=== PATIENT | female | born 1995 | race Caucasian/White ===

== ENCOUNTER 2016-09-14 17:53 | Emergency (ER) | payer OTHER ==
--- NOTE | 2016-09-14 20:29 | ED ORDER SUMMARY ---
..... Patient: APOORVA GA OrderSheet [facility] VisitID: [id number] [place] [address] 20y, F Registration Date/Time: 09/14/2016 ORDER SHEET Weight: 54.4 kg (stated) Allergies: Vicodin GENERAL ORDERS: UA-Culture if indicated Urgent (18:21 09/14/2016 DDean R.N. per protocol) (Ack 18:23 TBergley) (18:24 TBergley) Urine Urgent (18:21 09/14/2016 DDean R.N. per protocol) (Ack 18:23 TBergley) (18:24 TBergley) Abdomen 1V Upright Urgent (19:11 09/14/2016 Mary PRICE) (Ack 19:13 TBergley) (19:22 Kolby) MEDICATION ORDERS: IV FLUIDS: ORDER SHEET NOTES: [Electronically signed by Vega Coles R.N. (20:40 09/14/2016)] [Electronically signed by Alexandr Campbell MD (07:39 09/18/2016)] [Electronically locked/signed by Vega Coles R.N. (20:40 09/14/2016)]
--- NOTE | 2016-09-14 20:29 | ED NURSING NOTES ---
Clinical Report - Nurses [facility] [address] [place] [address] 09/14/2016 17:53 Patient: APOORVA GA TRIAGE Triage time 1805. Acuity: LEVEL 4. Chief Complaint: (right flank pain, hurts more when sitting). --18:14 Violeta Darden R.N. 18:05 09/14/16. BP: 122/88. HR: 88. RR: 18. O2 saturation: 100%. Temp: 98.8 F. Pain level now: 01/18. --18:14 Violeta Darden R.N. Weight: 54.4 kg stated. Height/Length: 64 inches Per Patient. BMI: 20.6. --18:13 Violeta Darden R.N. Medications Control Pills. Insulin Glargine Subcutaneous. NovoLOG Subcutaneous. --20:40 Vega Coles R.N. Simvastatin Oral. Synthroid Oral. --20:40 Vega Coles R.N. Allergies Vicodin. --20:40 Vega Coles R.N. History Arrived by private vehicle. Historian: patient. Accompanied by friend. Primary physician (danielle). Onset. (0830a). She has had flank pain. ( denies frequency or urgency. denies known trauma- or fall). No hematuria or fever. PAST MEDICAL HX: Last normal menstrual period- 1 week. SOCIAL HX: Light tobacco smoker (cigarette)- less than 1/2 a pack per day (trying to quit). No alcohol use or drug use. --18:14 Violeta Darden R.N. PROBLEMS: Myofascial Strain. Hemorrhoids. Hypothyroidism. Sinusitis. Hyperlipidemia. Herpetic Gingivostomatitis. Dental Pain. Aphthous Ulcer. Strep Throat. Diabetic Ketoacidosis. AC Joint Separation. Thyroid Disease. Celiac Disease. Dysmenorrhea. Diabetes Mellitus. --18:12 Violeta Darden R.N. ADDITIONAL SURGERIES: Appendectomy. Pylenidal cyst . --18:12 Violeta Darden R.N. Interventions ID band on patient. To treatment room. --18:14 Viloeta Darden R.N. PHYSICAL ASSESSMENT 18:05. Patient gowned. GENERAL / NEURO / PSYCH: Alert. Oriented X 4. Appears in no acute distress. RESPIRATORY: Respirations not labored. CVS: Capillary refill less than 2 seconds. GI / : No pain with urination, frequency of urination or urgency of urination. No vaginal discharge. SKIN: Skin is warm and dry. --18:17 Violeta Darden R.N. NURSING PROGRESS NOTES 18:05. Patient gowned. Head of bed elevated. Reassurance given. Patient identifiers checked. Call light placed in reach. Side rails up. Bed placed in lowest position. Patient ready for evaluation- chart flagged. --18:14 Violeta Darden R.N. 18:20. Patient ID band checked for patient name and birthdate: patient confirmed. Clean catch urine collected with return of yellow-colored clear urine; sample sent to lab for urinalysis and culture. Specimen labeled in the presence of the patient. --18:22 Violeta Darden R.N. 18:20. Care transferred and report given (BIPIN Christiansen). --18:22 Violeta Darden R.N. 19:17 09/14/16. The patient reports no complaints and she is calm and resting quietly. ( with visitor at bedside. Waiting for additional orders/testing). --19:17 Karina Balderas R.N. 20:35. The patient is calm and resting quietly. SKIN: Skin is warm and dry. Skin color within normal limits. --20:39 Vega Coles R.N. DISPOSITION / DISCHARGE Departure time: 20:39. Condition at departure: stable. No learning barriers present. Discharge instructions provided and reviewed with roll over press operator and the patient. Reviewed medication(s) side effects, precautions, dosing and course information. Prescription(s) given to the patient. Patient verbalized understanding. Written instructions provided in Greenlandic. The patient was discharged home and accompanied by roll over press operator. She left the Emergency Department ambulatory and via private vehicle. Youth Services Librarian driving. FALL RISK ASSESSMENT: Fall risk assessment completed. No fall risk identified. --20:39 Vega Coles R.N. 20:37 09/14/16. BP: 115/79. HR: 59. RR: 15. O2 saturation: 100% on room air. Pain level now: 11/18. --20:39 Vega Coles R.N. Locked/Released at 09/14/2016 20:40 by Vega Coles R.N.
--- NOTE | 2016-09-14 20:29 | ED NURSING NOTES ---
Clinical Report - Nurses [facility] [address] [place] [address] 09/14/2016 17:53 Patient: APOORVA GA TRIAGE Triage time 1805. Acuity: LEVEL 4. Chief Complaint: (right flank pain, hurts more when sitting). --18:14 Violeta Darden R.N. 18:05 09/14/16. BP: 122/88. HR: 88. RR: 18. O2 saturation: 100%. Temp: 98.8 F. Pain level now: 01/18. --18:14 Violeta Darden R.N. Weight: 54.4 kg stated. Height/Length: 64 inches Per Patient. BMI: 20.6. --18:13 Violeta Darden R.N. Medications Control Pills. Insulin Glargine Subcutaneous. NovoLOG Subcutaneous. --20:40 Vega Coles R.N. Simvastatin Oral. Synthroid Oral. --20:40 Vega Coles R.N. Allergies Vicodin. --20:40 Vega Coles R.N. History Arrived by private vehicle. Historian: patient. Accompanied by friend. Primary physician (danielle). Onset. (0830a). She has had flank pain. ( denies frequency or urgency. denies known trauma- or fall). No hematuria or fever. PAST MEDICAL HX: Last normal menstrual period- 1 week. SOCIAL HX: Light tobacco smoker (cigarette)- less than 1/2 a pack per day (trying to quit). No alcohol use or drug use. --18:14 Violeta Darden R.N. PROBLEMS: Myofascial Strain. Hemorrhoids. Hypothyroidism. Sinusitis. Hyperlipidemia. Herpetic Gingivostomatitis. Dental Pain. Aphthous Ulcer. Strep Throat. Diabetic Ketoacidosis. AC Joint Separation. Thyroid Disease. Celiac Disease. Dysmenorrhea. Diabetes Mellitus. --18:12 Violeta Darden R.N. ADDITIONAL SURGERIES: Appendectomy. Pylenidal cyst . --18:12 Violeta Darden R.N. Interventions ID band on patient. To treatment room. --18:14 Violeta Darden R.N. PHYSICAL ASSESSMENT 18:05. Patient gowned. GENERAL / NEURO / PSYCH: Alert. Oriented X 4. Appears in no acute distress. RESPIRATORY: Respirations not labored. CVS: Capillary refill less than 2 seconds. GI / : No pain with urination, frequency of urination or urgency of urination. No vaginal discharge. SKIN: Skin is warm and dry. --18:17 Violeta Darden R.N. NURSING PROGRESS NOTES 18:05. Patient gowned. Head of bed elevated. Reassurance given. Patient identifiers checked. Call light placed in reach. Side rails up. Bed placed in lowest position. Patient ready for evaluation- chart flagged. --18:14 Violeta Darden R.N. 18:20. Patient ID band checked for patient name and birthdate: patient confirmed. Clean catch urine collected with return of yellow-colored clear urine; sample sent to lab for urinalysis and culture. Specimen labeled in the presence of the patient. --18:22 Violeta Darden R.N. 18:20. Care transferred and report given (BIPIN Christiansen). --18:22 Violeta Draden R.N. 19:17 09/14/16. The patient reports no complaints and she is calm and resting quietly. ( with visitor at bedside. Waiting for additional orders/testing). --19:17 Karina Balderas R.N. 20:35. The patient is calm and resting quietly. SKIN: Skin is warm and dry. Skin color within normal limits. --20:39 Vega Coles R.N. DISPOSITION / DISCHARGE Departure time: 20:39. Condition at departure: stable. No learning barriers present. Discharge instructions provided and reviewed with marine cargo specialist and the patient. Reviewed medication(s) side effects, precautions, dosing and course information. Prescription(s) given to the patient. Patient verbalized understanding. Written instructions provided in Vietnamese. The patient was discharged home and accompanied by marine cargo specialist. She left the Emergency Department ambulatory and via private vehicle. Concrete Finisher driving. FALL RISK ASSESSMENT: Fall risk assessment completed. No fall risk identified. --20:39 Vega Coles R.N. 20:37 09/14/16. BP: 115/79. HR: 59. RR: 15. O2 saturation: 100% on room air. Pain level now: 11/18. --20:39 Vega Coles R.N. Locked/Released at 09/14/2016 20:40 by Vega Coles R.N.
--- NOTE | 2016-09-14 20:29 | ED ORDER SUMMARY ---
..... Patient: APOORVA GA OrderSheet [facility] VisitID: [id number] [place] [address] 20y, F Registration Date/Time: 09/14/2016 ORDER SHEET Weight: 54.4 kg (stated) Allergies: Vicodin GENERAL ORDERS: UA-Culture if indicated Urgent (18:21 09/14/2016 DDean R.N. per protocol) (Ack 18:23 TBergley) (18:24 TBergley) Urine Urgent (18:21 09/14/2016 DDean R.N. per protocol) (Ack 18:23 TBergley) (18:24 TBergley) Abdomen 1V Upright Urgent (19:11 09/14/2016 Mary PRICE) (Ack 19:13 TBergley) (19:22 Kolby) MEDICATION ORDERS: IV FLUIDS: ORDER SHEET NOTES: [Electronically signed by Vega Coles R.N. (20:40 09/14/2016)] [Electronically signed by Alexandr Campbell MD (07:39 09/18/2016)] [Electronically locked/signed by Vega Coles R.N. (20:40 09/14/2016)]
--- NOTE | 2016-09-14 20:29 | ED CLINICAL REPORT ---
Clinical Report - Physicians/Mid Levels [facility] [address] [place] [address] 09/14/2016 17:53 Patient: APOORVA GA Time Seen: 18:30. Arrived- By private vehicle. Historian- patient. HISTORY OF PRESENT ILLNESS Chief Complaint: FLANK PAIN. At its maximum, severity described as moderate. When seen in the E.D., severity described as mild. Modifying factors- worsened by movement. ((right flank pain, hurts more when sitting).). This started today Onset. (829a). She has had flank pain. ( denies frequency or urgency. denies known trauma- or fall). and is still present. It is described as "pain", sharp and stabbing and it is described as located in the right flank. No nausea, loss of appetite, vomiting or diarrhea. Similar symptoms previously: None. Recent medical care: Not recently seen/assessed. REVIEW OF SYSTEMS No constipation, black stools, hematemesis, difficulty with urination or pain with urination. No urinary frequency, fever, sore throat, chest pain or difficulty breathing. No cough, joint pain, skin rash or chills. Denies current . The patient has had back pain. All systems otherwise negative, except as recorded above. PAST HISTORY Myofascial Strain. Hemorrhoids. Hypothyroidism. Sinusitis. Hyperlipidemia. Herpetic Gingivostomatitis. Dental Pain. Aphthous Ulcer. Strep Throat. Diabetic Ketoacidosis. AC Joint Separation. Thyroid Disease. Celiac Disease. Dysmenorrhea. Diabetes Mellitus. ADDITIONAL SURGERIES: Appendectomy. Pylenidal cyst . Medications: Simvastatin Oral. Synthroid Oral. Control Pills. Insulin Glargine Subcutaneous. NovoLOG Subcutaneous. Allergies: Vicodin. SOCIAL HISTORY Light tobacco smoker (cigarette)- less than 1/2 a pack per day. No alcohol use or drug use. ADDITIONAL NOTES The nursing notes have been reviewed. PHYSICAL EXAM Vital Signs: 09/14/2016 18:05 BP: 122/88. HR: 88. RR: 18. O2 saturation: 100%. Temp: 98.8 F. Pain level now: 01/18. Appearance: Alert. Anxious. Patient in mild distress. Eyes: Pupils equal, round and reactive to light. Eyes normal inspection. ENT: Ears normal. Nose normal. Pharynx normal. Neck: Normal inspection. Neck supple. CVS: Normal heart rate and rhythm. Heart sounds normal. Pulses normal. Respiratory: No respiratory distress. Breath sounds normal. Chest nontender. Abdomen: Soft and nontender. Bowel sounds normal. Back: (Soft tissue tenderness right paralumbar soft tissue.). Skin: Skin warm. Normal skin color. No rash. Extremities: Extremities exhibit normal ROM. No lower extremity edema. Neuro: Oriented X 3. No motor deficit. No sensory deficit. Reflexes normal. LABS, X-RAYS, AND EKG KUB: No acute disease. (Moderate stool . No acute findings). Views: erect AP. Technique: good. The X-rays were independently viewed by me and interpreted contemporaneously by me. Laboratory Tests: UA-Culture if indicated: (JACEY: 09/14/2016 18:10) ( [facility] 09/14/2016 18:36) Final results Test Result Flag Units (Reference) URINE COLOR YELLOW URINE APPEARANCE CLEAR URINE GLUCOSE 3+ (NEGATIVE) URINE BILIRUBIN NEGATIVE (NEGATIVE) URINE KETONE NEGATIVE (NEGATIVE) URINE SPECIFIC GRAVITY 1.010 (1.010-1.030) URINE PH 5.5 (5.0-8.0) URINE PROTEIN NEGATIVE (NEGATIVE) URINE UROBILINOGEN 0.2 EU/dL (0.2-1.0) URINE NITRITE NEGATIVE (NEGATIVE) URINE BLOOD NEGATIVE (NEGATIVE) URINE LEUK ESTERASE NEGATIVE (NEGATIVE) URINE RBC 0-1 rbc/hpf (0-1) URINE WBC 1-3 wbc/hpf (0-1) URINE EPITHELIAL CELLS 1-3 EPI/hpf (0-5) URINE BACTERIA NONE SEEN (NONE SEEN) URINE COMMENT CULT NOT INDICATED URINE CULTURES ARE SET-UP BASED ON THE FOLLOWING CRITERIA:POSITIVE NITRITEPOSITIVE LEUKOCYTE ESTERASEGREATER THAN 10 WHITE BLOOD CELLSMODERATE (2+) OR GREATER BACTERIA Urine: (JACEY: 09/14/2016 18:10) ( Cog[facility]cvd 09/14/2016 18:29) Final results Test Result Flag Units (Reference) URINE NEGATIVE . PROGRESS AND PROCEDURES Patient/family counseled. Disposition: Discharged. Condition: stable. CLINICAL IMPRESSION Right paralumbar soft tissue tenderness. Moderate stool on abdominal x-ray. INSTRUCTIONS No strenuous activity. Drink plenty of fluids. (Drink one bottle of magnesium citrate to clean bowels.). Warnings: Further evaluation is necessary. GENERAL WARNINGS: Return or contact your physician immediately if your condition worsens or changes unexpectedly, if not improving as expected, or if other problems arise. Prescription Medications: Ibuprofen 600 mg tablets: take 1 tablet orally every 6 hours as needed for pain. Dispense fifteen (15). No refill. Flexeril 5 mg: take 1 orally every 8 hours as needed for muscle spasm or pain. Dispense fifteen (15). No refills. Substitution is permissible. Follow-up: Follow up with your doctor in three days if not better. Understanding of the discharge instructions verbalized by patient. Discharge instructions reviewed with and understanding was verbalized by automation mechanic. (Electronically signed by Alexandr Campbell MD 09/18/2016 7:39)
--- NOTE | 2016-09-14 20:29 | ED CLINICAL REPORT ---
Clinical Report - Physicians/Mid Levels [facility] [address] [place] [address] 09/14/2016 17:53 Patient: APOORVA GA Time Seen: 18:30. Arrived- By private vehicle. Historian- patient. HISTORY OF PRESENT ILLNESS Chief Complaint: FLANK PAIN. At its maximum, severity described as moderate. When seen in the E.D., severity described as mild. Modifying factors- worsened by movement. ((right flank pain, hurts more when sitting).). This started today Onset. (829a). She has had flank pain. ( denies frequency or urgency. denies known trauma- or fall). and is still present. It is described as "pain", sharp and stabbing and it is described as located in the right flank. No nausea, loss of appetite, vomiting or diarrhea. Similar symptoms previously: None. Recent medical care: Not recently seen/assessed. REVIEW OF SYSTEMS No constipation, black stools, hematemesis, difficulty with urination or pain with urination. No urinary frequency, fever, sore throat, chest pain or difficulty breathing. No cough, joint pain, skin rash or chills. Denies current . The patient has had back pain. All systems otherwise negative, except as recorded above. PAST HISTORY Myofascial Strain. Hemorrhoids. Hypothyroidism. Sinusitis. Hyperlipidemia. Herpetic Gingivostomatitis. Dental Pain. Aphthous Ulcer. Strep Throat. Diabetic Ketoacidosis. AC Joint Separation. Thyroid Disease. Celiac Disease. Dysmenorrhea. Diabetes Mellitus. ADDITIONAL SURGERIES: Appendectomy. Pylenidal cyst . Medications: Simvastatin Oral. Synthroid Oral. Control Pills. Insulin Glargine Subcutaneous. NovoLOG Subcutaneous. Allergies: Vicodin. SOCIAL HISTORY Light tobacco smoker (cigarette)- less than 1/2 a pack per day. No alcohol use or drug use. ADDITIONAL NOTES The nursing notes have been reviewed. PHYSICAL EXAM Vital Signs: 09/14/2016 18:05 BP: 122/88. HR: 88. RR: 18. O2 saturation: 100%. Temp: 98.8 F. Pain level now: 01/18. Appearance: Alert. Anxious. Patient in mild distress. Eyes: Pupils equal, round and reactive to light. Eyes normal inspection. ENT: Ears normal. Nose normal. Pharynx normal. Neck: Normal inspection. Neck supple. CVS: Normal heart rate and rhythm. Heart sounds normal. Pulses normal. Respiratory: No respiratory distress. Breath sounds normal. Chest nontender. Abdomen: Soft and nontender. Bowel sounds normal. Back: (Soft tissue tenderness right paralumbar soft tissue.). Skin: Skin warm. Normal skin color. No rash. Extremities: Extremities exhibit normal ROM. No lower extremity edema. Neuro: Oriented X 3. No motor deficit. No sensory deficit. Reflexes normal. LABS, X-RAYS, AND EKG KUB: No acute disease. (Moderate stool . No acute findings). Views: erect AP. Technique: good. The X-rays were independently viewed by me and interpreted contemporaneously by me. Laboratory Tests: UA-Culture if indicated: (JACEY: 09/14/2016 18:10) ( [facility] 09/14/2016 18:36) Final results Test Result Flag Units (Reference) URINE COLOR YELLOW URINE APPEARANCE CLEAR URINE GLUCOSE 3+ (NEGATIVE) URINE BILIRUBIN NEGATIVE (NEGATIVE) URINE KETONE NEGATIVE (NEGATIVE) URINE SPECIFIC GRAVITY 1.010 (1.010-1.030) URINE PH 5.5 (5.0-8.0) URINE PROTEIN NEGATIVE (NEGATIVE) URINE UROBILINOGEN 0.2 EU/dL (0.2-1.0) URINE NITRITE NEGATIVE (NEGATIVE) URINE BLOOD NEGATIVE (NEGATIVE) URINE LEUK ESTERASE NEGATIVE (NEGATIVE) URINE RBC 0-1 rbc/hpf (0-1) URINE WBC 1-3 wbc/hpf (0-1) URINE EPITHELIAL CELLS 1-3 EPI/hpf (0-5) URINE BACTERIA NONE SEEN (NONE SEEN) URINE COMMENT CULT NOT INDICATED URINE CULTURES ARE SET-UP BASED ON THE FOLLOWING CRITERIA:POSITIVE NITRITEPOSITIVE LEUKOCYTE ESTERASEGREATER THAN 10 WHITE BLOOD CELLSMODERATE (2+) OR GREATER BACTERIA Urine: (JACEY: 09/14/2016 18:10) ( [facility] 09/14/2016 18:29) Final results Test Result Flag Units (Reference) URINE NEGATIVE . PROGRESS AND PROCEDURES Patient/family counseled. Disposition: Discharged. Condition: stable. CLINICAL IMPRESSION Right paralumbar soft tissue tenderness. Moderate stool on abdominal x-ray. INSTRUCTIONS No strenuous activity. Drink plenty of fluids. (Drink one bottle of magnesium citrate to clean bowels.). Warnings: Further evaluation is necessary. GENERAL WARNINGS: Return or contact your physician immediately if your condition worsens or changes unexpectedly, if not improving as expected, or if other problems arise. Prescription Medications: Ibuprofen 600 mg tablets: take 1 tablet orally every 6 hours as needed for pain. Dispense fifteen (15). No refill. Flexeril 5 mg: take 1 orally every 8 hours as needed for muscle spasm or pain. Dispense fifteen (15). No refills. Substitution is permissible. Follow-up: Follow up with your doctor in three days if not better. Understanding of the discharge instructions verbalized by patient. Discharge instructions reviewed with and understanding was verbalized by quarantine inspector. (Electronically signed by Alexandr Campbell MD 09/18/2016 7:39)
--- NOTE | 2016-09-14 21:46 | DIAGNOSTIC IMAGING REPORT ---
PROCEDURE: XR ABDOMEN 1 VIEW UPRIGHT INDICATION: ABDOMINAL PAIN TECHNIQUE: AP upright view. COMPARISON: KUB 10/31/2004 FINDINGS: Moderate stool. No abdominal mass, free air or suspicious calcification. Bones are normal. IMPRESSION: 1. Moderate stool
--- NOTE | 2016-09-18 07:39 | ED MAR SUMMARY ---
..... Medication Administration Record [facility] [address] [place] [id number] Patient: APOORVA GA Melvin Visit ID: [id number] 20y, F Weight: 54.4 kg Height/Length: 64 in BMI: 20.6 ALLERGIES: Vicodin
--- NOTE | 2016-09-18 07:39 | ED DISCHARGE INSTRUCTIONS ---
Patient: APOORVA GA General Instructions [facility] VisitID: [id number] [place] [address] 20y, F Registration Date/Time: 09/14/2016 Right paralumbar soft tissue tenderness. Moderate stool on abdominal x-ray. INSTRUCTIONS No strenuous activity. Drink plenty of fluids. (Drink one bottle of magnesium citrate to clean bowels.). Warnings: Further evaluation is necessary. GENERAL WARNINGS: Return or contact your physician immediately if your condition worsens or changes unexpectedly, if not improving as expected, or if other problems arise. Prescription Medications: Ibuprofen 600 mg tablets: take 1 tablet orally every 6 hours as needed for pain. Dispense fifteen (15). No refill. Flexeril 5 mg: take 1 orally every 8 hours as needed for muscle spasm or pain. Dispense fifteen (15). No refills. Substitution is permissible. Follow-up: Follow up with your doctor in three days if not better. Understanding of the discharge instructions verbalized by patient. Discharge instructions reviewed with and understanding was verbalized by code number stamper. ADDITIONAL INFORMATION Ibuprofen Oral tablet What is this medicine? IBUPROFEN (eye BYOO proe fen) is a non-steroidal anti-inflammatory drug (NSAID). It is used for dental pain, fever, headaches or migraines, osteoarthritis, rheumatoid arthritis, or painful monthly periods. It can also relieve minor aches and pains caused by a cold, flu, or sore throat. How should I use this medicine? Take this medicine by mouth with a glass of water. Follow the directions on the prescription label. Take this medicine with food if your stomach gets upset. Try to not lie down for at least 10 minutes after you take the medicine. Take your medicine at regular intervals. Do not take your medicine more often than directed. A special MedGuide will be given to you by the pharmacist with each prescription and refill. Be sure to read this information carefully each time. Talk to your physical medicine specialist regarding the use of this medicine in children. Special care may be needed. What side effects may I notice from receiving this medicine? Side effects that you should report to your doctor or health care giver as soon as possible: allergic reactions like skin rash, itching or hives, swelling of the face, lips, or tongue black or bloody stools, blood in the urine or in vomit breathing problems changes in vision chest pain general ill feeling or flu-like symptoms nausea or vomiting redness, blistering, peeling or loosening of the skin, including inside the mouth slurred speech or weakness on one side of the body stomach pain unexplained weight gain or swelling unusually weak or tired yellowing of eyes or skin Side effects that usually do not require medical attention (report to your doctor or health care giver if they continue or are bothersome): constipation or diarrhea dizziness gas or heartburn stomach upset What may interact with this medicine? Do not take this medicine with any of the following medications: cidofovir ketorolac methotrexate pemetrexed This medicine may also interact with the following medications: alcohol aspirin diuretics lithium other drugs for inflammation like prednisone warfarin What if I miss a dose? If you miss a dose, take it as soon as you can. If it is almost time for your next dose, take only that dose. Do not take double or extra doses. Where should I keep my medicine? Keep out of the reach of children. Store at room temperature between 15 and 30 degrees C (59 and 86 degrees F). Keep container tightly closed. Throw away any unused medicine after the expiration date. What should I tell my health care provider before I take this medicine? They need to know if you have any of these conditions: asthma cigarette smoker drink more than 3 alcohol containing drinks a day heart disease or circulation problems such as heart failure or leg edema (fluid retention) high blood pressure kidney disease liver disease stomach bleeding or ulcers an unusual or allergic reaction to ibuprofen, aspirin, other NSAIDS, other medicines, foods, dyes, or preservatives or trying to get breast-feeding What should I watch for while using this medicine? Tell your doctor or healthcare professional if your symptoms do not start to get better or if they get worse. This medicine does not prevent heart attack or stroke. In fact, this medicine may increase the chance of a heart attack or stroke. The chance may increase with longer use of this medicine and in people who have heart disease. If you take aspirin to prevent heart attack or stroke, talk with your doctor or health care giver. Do not take other medicines that contain aspirin, ibuprofen, or naproxen with this medicine. Side effects such as stomach upset, nausea, or ulcers may be more likely to occur. Many medicines available without a prescription should not be taken with this medicine. This medicine can cause ulcers and bleeding in the stomach and intestines at any time during treatment. Ulcers and bleeding can happen without warning symptoms and can cause . To reduce your risk, do not smoke cigarettes or drink alcohol while you are taking this medicine. You may get drowsy or dizzy. Do not drive, use machinery, or do anything that needs mental alertness until you know how this medicine affects you. Do not stand or sit up quickly, especially if you are an older patient. This reduces the risk of dizzy or fainting spells. This medicine can cause you to bleed more easily. Try to avoid damage to your teeth and gums when you brush or floss your teeth. Cyclobenzaprine Hydrochloride Oral tablet What is this medicine? CYCLOBENZAPRINE (chinacy reji KIRT blair lawson) is a muscle relaxer. It is used to treat muscle pain, spasms, and stiffness. How should I use this medicine? Take this medicine by mouth with a glass of water. Follow the directions on the prescription label. If this medicine upsets your stomach, take it with food or milk. Take your medicine at regular intervals. Do not take it more often than directed. Talk to your physical medicine specialist regarding the use of this medicine in children. Special care may be needed. What side effects may I notice from receiving this medicine? Side effects that you should report to your doctor or health care giver as soon as possible: allergic reactions like skin rash, itching or hives, swelling of the face, lips, or tongue chest pain fast heartbeat hallucinations seizures vomiting Side effects that usually do not require medical attention (report to your doctor or health care giver if they continue or are bothersome): headache What may interact with this medicine? Do not take this medicine with any of the following medications: cisapride droperidol flecainide grepafloxacin halofantrine levomethadyl MAOIs like Carbex, Eldepryl, Marplan, Nardil, and Parnate nilotinib pimozide probucol sertindole This medicine may also interact with the following medications: abarelix alcohol contrast dyes dolasetron guanethidine medicines for cancer medicines for depression, anxiety, or psychotic disturbances medicines to treat an irregular heartbeat medicines used for sleep or numbness during surgery or procedure methadone octreotide ondansetron palonosetron phenothiazines like chlorpromazine, mesoridazine, prochlorperazine, thioridazine some medicines for infection like alfuzosin, chloroquine, clarithromycin, levofloxacin, mefloquine, pentamidine, troleandomycin tramadol vardenafil What if I miss a dose? If you miss a dose, take it as soon as you can. If it is almost time for your next dose, take only that dose. Do not take double or extra doses. Where should I keep my medicine? Keep out of the reach of children. Store at room temperature between 15 and 30 degrees C (59 and 86 degrees F). Keep container tightly closed. Throw away any unused medicine after the expiration date. What should I tell my health care provider before I take this medicine? They need to know if you have any of these conditions: heart disease, irregular heartbeat, or previous heart attack liver disease thyroid problem an unusual or allergic reaction to cyclobenzaprine, tricyclic antidepressants, lactose, other medicines, foods, dyes, or preservatives or trying to get breast-feeding What should I watch for while using this medicine? Check with your doctor or health care giver if your condition does not improve within 1 to 3 weeks. You may get drowsy or dizzy when you first start taking the medicine or change doses. Do not drive, use machinery, or do anything that may be dangerous until you know how the medicine affects you. Stand or sit up slowly. Your mouth may get dry. Drinking water, chewing sugarless gum, or sucking on hard candy may help. You have been given the following additional information: Ibuprofen Oral tablet Cyclobenzaprine Hydrochloride Oral tablet No strenuous activity. (Electronically signed by Alexandr Campbell MD 09/18/2016 7:39)
--- NOTE | 2016-09-18 07:39 | ED MED RECONCILIATION SUMMARY ---
Patient: APOORVA GA Medication Reconciliation Report [facility] VisitID: [id number] [address] [place] [address] 20y, F Registration Date/Time: 09/14/2016 Weight: 54.4 kg Height/Length: 64 in. BMI: 20.6 ALLERGIES: Vicodin The patient's Home Medications are listed below: THE FOLLOWING MEDICATIONS NEED TO BE RECONCILED: Control Pills Insulin Glargine Subcutaneous NovoLOG Subcutaneous Simvastatin Oral Synthroid Oral The source(s) of the original Home Medication information: Not obtained. The following Medications were given to the patient in the Emergency Department: None. The following Medications were prescribed to the patient: Ibuprofen 600 mg tablets: take 1 tablet orally every 6 hours as needed for pain. Dispense fifteen (15). No refill. -- Alexandr Campbell MD Flexeril 5 mg: take 1 orally every 8 hours as needed for muscle spasm or pain. Dispense fifteen (15). No refills. Substitution is permissible. -- Alexandr Campbell MD
--- NOTE | 2016-09-18 07:39 | ED DISCHARGE INSTRUCTIONS ---
Patient: APOORVA GA General Instructions [facility] VisitID: [id number] [place] [address] 20y, F Registration Date/Time: 09/14/2016 Right paralumbar soft tissue tenderness. Moderate stool on abdominal x-ray. INSTRUCTIONS No strenuous activity. Drink plenty of fluids. (Drink one bottle of magnesium citrate to clean bowels.). Warnings: Further evaluation is necessary. GENERAL WARNINGS: Return or contact your physician immediately if your condition worsens or changes unexpectedly, if not improving as expected, or if other problems arise. Prescription Medications: Ibuprofen 600 mg tablets: take 1 tablet orally every 6 hours as needed for pain. Dispense fifteen (15). No refill. Flexeril 5 mg: take 1 orally every 8 hours as needed for muscle spasm or pain. Dispense fifteen (15). No refills. Substitution is permissible. Follow-up: Follow up with your doctor in three days if not better. Understanding of the discharge instructions verbalized by patient. Discharge instructions reviewed with and understanding was verbalized by senior clinical project manager. ADDITIONAL INFORMATION Ibuprofen Oral tablet What is this medicine? IBUPROFEN (eye BYOO proe fen) is a non-steroidal anti-inflammatory drug (NSAID). It is used for dental pain, fever, headaches or migraines, osteoarthritis, rheumatoid arthritis, or painful monthly periods. It can also relieve minor aches and pains caused by a cold, flu, or sore throat. How should I use this medicine? Take this medicine by mouth with a glass of water. Follow the directions on the prescription label. Take this medicine with food if your stomach gets upset. Try to not lie down for at least 10 minutes after you take the medicine. Take your medicine at regular intervals. Do not take your medicine more often than directed. A special MedGuide will be given to you by the pharmacist with each prescription and refill. Be sure to read this information carefully each time. Talk to your weaving professor regarding the use of this medicine in children. Special care may be needed. What side effects may I notice from receiving this medicine? Side effects that you should report to your doctor or health furnace caretaker as soon as possible: allergic reactions like skin rash, itching or hives, swelling of the face, lips, or tongue black or bloody stools, blood in the urine or in vomit breathing problems changes in vision chest pain general ill feeling or flu-like symptoms nausea or vomiting redness, blistering, peeling or loosening of the skin, including inside the mouth slurred speech or weakness on one side of the body stomach pain unexplained weight gain or swelling unusually weak or tired yellowing of eyes or skin Side effects that usually do not require medical attention (report to your doctor or health furnace caretaker if they continue or are bothersome): constipation or diarrhea dizziness gas or heartburn stomach upset What may interact with this medicine? Do not take this medicine with any of the following medications: cidofovir ketorolac methotrexate pemetrexed This medicine may also interact with the following medications: alcohol aspirin diuretics lithium other drugs for inflammation like prednisone warfarin What if I miss a dose? If you miss a dose, take it as soon as you can. If it is almost time for your next dose, take only that dose. Do not take double or extra doses. Where should I keep my medicine? Keep out of the reach of children. Store at room temperature between 15 and 30 degrees C (59 and 86 degrees F). Keep container tightly closed. Throw away any unused medicine after the expiration date. What should I tell my health care provider before I take this medicine? They need to know if you have any of these conditions: asthma cigarette smoker drink more than 3 alcohol containing drinks a day heart disease or circulation problems such as heart failure or leg edema (fluid retention) high blood pressure kidney disease liver disease stomach bleeding or ulcers an unusual or allergic reaction to ibuprofen, aspirin, other NSAIDS, other medicines, foods, dyes, or preservatives or trying to get breast-feeding What should I watch for while using this medicine? Tell your doctor or healthcare professional if your symptoms do not start to get better or if they get worse. This medicine does not prevent heart attack or stroke. In fact, this medicine may increase the chance of a heart attack or stroke. The chance may increase with longer use of this medicine and in people who have heart disease. If you take aspirin to prevent heart attack or stroke, talk with your doctor or health furnace caretaker. Do not take other medicines that contain aspirin, ibuprofen, or naproxen with this medicine. Side effects such as stomach upset, nausea, or ulcers may be more likely to occur. Many medicines available without a prescription should not be taken with this medicine. This medicine can cause ulcers and bleeding in the stomach and intestines at any time during treatment. Ulcers and bleeding can happen without warning symptoms and can cause . To reduce your risk, do not smoke cigarettes or drink alcohol while you are taking this medicine. You may get drowsy or dizzy. Do not drive, use machinery, or do anything that needs mental alertness until you know how this medicine affects you. Do not stand or sit up quickly, especially if you are an older patient. This reduces the risk of dizzy or fainting spells. This medicine can cause you to bleed more easily. Try to avoid damage to your teeth and gums when you brush or floss your teeth. Cyclobenzaprine Hydrochloride Oral tablet What is this medicine? CYCLOBENZAPRINE (chinacy reji KIRT blair lawson) is a muscle relaxer. It is used to treat muscle pain, spasms, and stiffness. How should I use this medicine? Take this medicine by mouth with a glass of water. Follow the directions on the prescription label. If this medicine upsets your stomach, take it with food or milk. Take your medicine at regular intervals. Do not take it more often than directed. Talk to your weaving professor regarding the use of this medicine in children. Special care may be needed. What side effects may I notice from receiving this medicine? Side effects that you should report to your doctor or health furnace caretaker as soon as possible: allergic reactions like skin rash, itching or hives, swelling of the face, lips, or tongue chest pain fast heartbeat hallucinations seizures vomiting Side effects that usually do not require medical attention (report to your doctor or health furnace caretaker if they continue or are bothersome): headache What may interact with this medicine? Do not take this medicine with any of the following medications: cisapride droperidol flecainide grepafloxacin halofantrine levomethadyl MAOIs like Carbex, Eldepryl, Marplan, Nardil, and Parnate nilotinib pimozide probucol sertindole This medicine may also interact with the following medications: abarelix alcohol contrast dyes dolasetron guanethidine medicines for cancer medicines for depression, anxiety, or psychotic disturbances medicines to treat an irregular heartbeat medicines used for sleep or numbness during surgery or procedure methadone octreotide ondansetron palonosetron phenothiazines like chlorpromazine, mesoridazine, prochlorperazine, thioridazine some medicines for infection like alfuzosin, chloroquine, clarithromycin, levofloxacin, mefloquine, pentamidine, troleandomycin tramadol vardenafil What if I miss a dose? If you miss a dose, take it as soon as you can. If it is almost time for your next dose, take only that dose. Do not take double or extra doses. Where should I keep my medicine? Keep out of the reach of children. Store at room temperature between 15 and 30 degrees C (59 and 86 degrees F). Keep container tightly closed. Throw away any unused medicine after the expiration date. What should I tell my health care provider before I take this medicine? They need to know if you have any of these conditions: heart disease, irregular heartbeat, or previous heart attack liver disease thyroid problem an unusual or allergic reaction to cyclobenzaprine, tricyclic antidepressants, lactose, other medicines, foods, dyes, or preservatives or trying to get breast-feeding What should I watch for while using this medicine? Check with your doctor or health furnace caretaker if your condition does not improve within 1 to 3 weeks. You may get drowsy or dizzy when you first start taking the medicine or change doses. Do not drive, use machinery, or do anything that may be dangerous until you know how the medicine affects you. Stand or sit up slowly. Your mouth may get dry. Drinking water, chewing sugarless gum, or sucking on hard candy may help. You have been given the following additional information: Ibuprofen Oral tablet Cyclobenzaprine Hydrochloride Oral tablet No strenuous activity. (Electronically signed by Alexandr Campbell MD 09/18/2016 7:39)
--- NOTE | 2016-09-18 07:39 | ED MAR SUMMARY ---
..... Medication Administration Record [facility] [address] [place], [place] [id number] Patient: APOORVA GA Melvin Visit ID: [id number] 20y, F Weight: 54.4 kg Height/Length: 64 in BMI: 20.6 ALLERGIES: Vicodin
--- NOTE | 2016-09-18 07:39 | ED MED RECONCILIATION SUMMARY ---
Patient: APOORVA GA Medication Reconciliation Report [facility] VisitID: [id number] [address] [place] [place] [address] 20y, F Registration Date/Time: 09/14/2016 Weight: 54.4 kg Height/Length: 64 in. BMI: 20.6 ALLERGIES: Vicodin The patient's Home Medications are listed below: THE FOLLOWING MEDICATIONS NEED TO BE RECONCILED: Control Pills Insulin Glargine Subcutaneous NovoLOG Subcutaneous Simvastatin Oral Synthroid Oral The source(s) of the original Home Medication information: Not obtained. The following Medications were given to the patient in the Emergency Department: None. The following Medications were prescribed to the patient: Ibuprofen 600 mg tablets: take 1 tablet orally every 6 hours as needed for pain. Dispense fifteen (15). No refill. -- Alexandr Campbell MD Flexeril 5 mg: take 1 orally every 8 hours as needed for muscle spasm or pain. Dispense fifteen (15). No refills. Substitution is permissible. -- Alexandr Campbell MD
== END 2016-09-14 20:39 | disposition home or self-care (01) ==
LOC: ED SRH 17:53
DX: M79.9 Soft tissue disorder, unspecified (principal); K59.00 Constipation, unspecified; E11.9 Type 2 diabetes mellitus without complications; E07.9 Disorder of thyroid, unspecified; Z79.4 Long term (current) use of insulin; Z79.899 Other long term (current) drug therapy
CPT/HCPCS: 90004; 93070